=== PATIENT | female | born 1995 | race Two or more races ===

== ENCOUNTER 2022-01-14 18:02 | Emergency (ER) | payer OTHER ==
[~2022-01-14] VITALS: Ht 162.6 cm; Wt 122.5 kg
[2022-01-14 18:04] VITALS: BP 119/73
== END 2022-01-14 19:11 | disposition left against medical advice (07) ==
LOC: ER 18:02
DX: R10.11 Right upper quadrant pain (principal); R11.2 Nausea with vomiting, unspecified; R19.7 Diarrhea, unspecified; Z53.21 Procedure and treatment not carried out due to patient leaving prior to being seen by health care provider

== ENCOUNTER 2023-02-01 22:58 | Emergency (ER) | payer MEDICAID, OTHER ==
[~2023-02-01] VITALS: Ht 154.9 cm; Wt 116.2 kg
[2023-02-01] MEDS ORDERED: TETANUS-DIPTH-ACEL PERTUSSIS 0.5ML SYR Tdap IM ONE (23:45)
[2023-02-02 00:53] VITALS: BP 130/76
== END 2023-02-02 00:55 | disposition home or self-care (01) ==
LOC: ER 22:58
DX: S61.032A Puncture wound without foreign body of left thumb without damage to nail, initial encounter (principal); E66.01 Morbid (severe) obesity due to excess calories; Z68.42 Body mass index [BMI] 45.0-49.9, adult; W25.XXXA Contact with sharp glass, initial encounter; Y93.89 Activity, other specified; Y92.89 Other specified places as the place of occurrence of the external cause; Y99.8 Other external cause status
CPT/HCPCS: 90471; 90715